=== PATIENT | male | born 1935 | race Two or more races ===

== ENCOUNTER 2017-04-15 09:12 | Outpatient (CLI) | payer MEDICARE, OTHER ==
[~2017-04-15 09:12] MED LIST: AVODART0.5 MG PO; CRESTOR10 M1 PO; DEXILANT60 MG PO; FLOMAX0.4 MG PO; GLUCOPHAGE500 MG PO; JANUVIA50 MG PO; SIMVASTATIN40 MG PO; VIT D3 PO; ZESTRIL10 MG PO
[2017-04-15 09:35] VITALS: BP 123/58
[2017-04-15] MEDS ORDERED: ASPIRIN EC81 MG ORAL (09:40)
--- NOTE | 2017-04-15 10:41 | GI Initial Consult Note ---
Figueroa,[place] Manpreet N.PCraig 04/15/17 1041: History of Present Illness General Date patient seen: Apr 15, 2017 Time patient seen: 10:36 Referring physician: RANJEET Reason for Consultation: vomiting Present Illness HPI 81 year old male patient referred by Dr. Williamson for c/o of random episodes of vomiting and heartburn. In addition the patient c/o of cough with sputum production, swelling of feet and weakness in the arm/leg. Denies any unintentional weight loss or changes in dietary habits. No signs of abuse or neglect. Patient is not fall risk. Unknown history of endoscopic / colonoscopies. Home Meds Reported Medications Aspirin Ec* (ASPIRIN EC*) 81 Mg Tablet., 81 MG ORAL DAILY, TAB 04/15/17 Dexlansoprazole (Dexilant) 60 Mg Cap., 60 MG PO PRN 05/28/12 Tamsulosin HCl (Flomax) 0.4 Mg Cap, 0.4 MG PO DAILY, #5 TAB 05/28/12 Simvastatin (ZOCOR) 40 Mg Tablet, 40 MG PO DAILY 05/28/12 Sitagliptin (Januvia) 50 Mg Tab, 50 MG PO DAILY 05/28/12 Dutasteride (AVODART) 0.5 Mg Capsule, 0.5 MG PO HS 05/28/12 Metformin Hcl* (GLUCOPHAGE*) 500 Mg Tablet, 500 MG PO BID, #20 TAB Take one tablet by mouth twice a day 05/28/12 Discontinued Reported Medications [Vit D3] No Conflict Check, 5000 PO DAILY 06/18/12 Rosuvastatin Calcium (Crestor) 10 Mg Tab, 10 MG PO DAILY 06/18/12 Lisinopril* (ZESTRIL*) 10 Mg Tablet, 10 MG PO DAILY, #10 TAB Take 1 tablet by mouth every day. 05/28/12 Med list reviewed/reconciled: Yes Allergies: Coded Allergies: No Known Allergies (Unverified , 05/27/12) Patient History History Provided By: Patient, Medical Record [facility] Narrative HTN - patient is not taking any BP meds at this time cholesterol BPH GERD DM Kidney Stone Past Surgical History: B inguinal hernia repair B Cataract Pertinent Family History: none Social History: Denies: smoking, alcohol use, drug use, other Review of Systems All Other Systems: negative except mentioned in HPI Physical Exam Vital Signs Date Time Temp Pulse Resp B/P (MAP) Pulse Ox O2 Delivery O2 Flow Rate FiO2 04/15/17 09:35 97.6 66 16 123/58 96 Sp02 EP Interpretation: reviewed, normal General Appearance: well appearing, no apparent distress, alert Head: normocephalic EENT: PERRL/EOMI, normal ENT inspection Neck: supple Respiratory: normal breath sounds, no respiratory distress Cardiovascular: normal rate Gastrointestinal: normal inspection, non tender, soft, normal bowel sounds, non -distended Rectal: deferred Genitourinary: deferred Musculoskeletal: normal inspection, back normal Neurologic: normal inspection, alert, oriented x3, responsive Psychiatric: normal inspection, judgement/insight normal, memory normal Skin: normal inspection, normal color, no rash, warm/dry, palpation normal, well hydrated Lymphatic: normal inspection, no adenopathy GI: Plan Problems: (1) Vomiting (2) GERD (gastroesophageal reflux disease) (3) Diabetes mellitus (4) BPH (benign prostatic hyperplasia) (5) HTN (hypertension) (6) Elevated cholesterol Plan rx ppi QOD dietary instructions given >> eat smaller portion, more frequent meals extensive review of imaging studies and medical reports from other facilities RTC prn Seen with Dr. Damian. Thank you for this patient referral. JONG DAMIAN 04/16/17 1013: History of Present Illness Present Illness Home Meds Reported Medications Aspirin Ec* (ASPIRIN EC*) 81 Mg Tablet., 81 MG ORAL DAILY, TAB 04/15/17 Dexlansoprazole (Dexilant) 60 Mg Cap., 60 MG PO PRN 05/28/12 Tamsulosin HCl (Flomax) 0.4 Mg Cap, 0.4 MG PO DAILY, #5 TAB 05/28/12 Simvastatin (ZOCOR) 40 Mg Tablet, 40 MG PO DAILY 05/28/12 Sitagliptin (Januvia) 50 Mg Tab, 50 MG PO DAILY 05/28/12 Dutasteride (AVODART) 0.5 Mg Capsule, 0.5 MG PO HS 05/28/12 Metformin Hcl* (GLUCOPHAGE*) 500 Mg Tablet, 500 MG PO BID, #20 TAB Take one tablet by mouth twice a day 05/28/12 Discontinued Reported Medications [Vit D3] No Conflict Check, 5000 PO DAILY 06/18/12 Rosuvastatin Calcium (Crestor) 10 Mg Tab, 10 MG PO DAILY 06/18/12 Lisinopril* (ZESTRIL*) 10 Mg Tablet, 10 MG PO DAILY, #10 TAB Take 1 tablet by mouth every day. 05/28/12 Allergies: Coded Allergies: No Known Allergies (Unverified , 05/27/12) GI: Plan Plan The patient was seen and examined at bedside and all new and available data was reviewed in the patients chart. I agree with the above findings, impression and plan. (Patient seen earlier today. Signature stamp does not reflect patient encounter time.). - MD [facility] Manpreet Holbrook Apr 15, 2017 10:41 JONG DAMIAN Apr 16, 2017 10:13
== END 2017-04-15 09:35 | disposition home or self-care (01) ==
LOC: PAN 09:12
DX: R11.10 Vomiting, unspecified (principal); K21.9 Gastro-esophageal reflux disease without esophagitis; E11.9 Type 2 diabetes mellitus without complications; N40.0 Benign prostatic hyperplasia without lower urinary tract symptoms; I10 Essential (primary) hypertension; E78.00 Pure hypercholesterolemia, unspecified; R05 Cough; Z79.82 Long term (current) use of aspirin; Z79.84 Long term (current) use of oral hypoglycemic drugs
CPT/HCPCS: 99201

== ENCOUNTER 2017-11-10 14:15 | Outpatient (CLI) | payer MEDICARE, OTHER ==
[~2017-11-10 14:15] MED LIST changes: +ASPIRIN EC81 MG ORAL
[2017-11-10 14:26] VITALS: BP 129/66
--- NOTE | 2017-11-10 15:17 | GI Progress Note ---
Assessment/Plan Problems: (1) Occult blood in stools ICD Codes: R19.5 - Other fecal abnormalities SNOMED: 40610699, 628955584 (2) GI bleed ICD Codes: K92.2 - Gastrointestinal hemorrhage, unspecified SNOMED: 22107870 Status: stable Status Narrative Seen with Dr. Moulton. Assessment/Plan EGD/colonoscopy scheduled 11/09/17. - CLD & (Nulytely/Suprep/Movi-Prep) prep instructions given and acknowledged by patient. - NPO @ [place] day prior procedure explained. Seen with Dr. Moulton. Thank you for this patient referral. The patient was seen and examined at bedside and all new and available data was reviewed in the patients chart. I agree with the above findings, impression and plan. (Patient seen earlier today. Signature stamp does not reflect patient encounter time.). - Bradley Moulton MD Subjective Subjective Bloody in stool, FOB positive Objective Last 24 Hour Vital Signs Date Time Temp Pulse Resp B/P (MAP) Pulse Ox O2 Delivery O2 Flow Rate FiO2 11/10/17 14:26 97.6 72 16 129/66 95 97.6 General Appearance: WD/WN, no apparent distress, alert Cardiovascular: normal rate Respiratory/Chest: normal breath sounds, no respiratory distress Abdominal Exam: normal bowel sounds, non tender, soft Extremities: normal range of motion, non-tender Cathie Figueroa FOAM DISPENSER Nov 10, 2017 15:17
== END 2017-11-10 14:47 | disposition home or self-care (01) ==
LOC: PAN 14:15
DX: K92.2 Gastrointestinal hemorrhage, unspecified (principal); R19.5 Other fecal abnormalities
CPT/HCPCS: 99201

== ENCOUNTER 2017-11-12 07:07 | Day surgery (SDC) | payer MEDICARE, OTHER ==
[2017-11-12] VITALS (9 sets, daily range): BP systolic 113–140; BP diastolic 58–67
[~2017-11-12] VITALS: Ht 165.1 cm; Wt 78.9 kg
--- NOTE | 2017-11-12 06:53 | Anethesia Preoperative Eval ---
Anesthesia Pre-op PMH/ROS General Date of Evaluation: Nov 12, 2017 Time of Evaluation: 06:50 Anesthesiologist: nicola ASA Score: ASA 3 Mallampati Score Class I : Soft palate, uvula, fauces, pillars visible Class II: Soft palate, uvula, fauces visible Class III: Soft palate, base of uvula visible Class IV: Only hard plate visible Mallampati Classification: Class II Surgeon: tamir Diagnosis: gi bleed Surgical Procedure: egd/colonoscopy Anesthesia History: none Social History: smoking - nonsmoker Family History: no anesthesia problems Allergies: Coded Allergies: No Known Allergies (Unverified , 05/27/12) Medications: see eMAR Past Medical History Cardiovascular: Reports: HTN, other - elevated cholesterol Gastrointestinal/Genitourinary: Reports: other - bph, kidney stones Endocrine: Reports: DM Musculoskeletal/Integumentary: Reports: OA Anesthesia Pre-op Phys. Exam Physician Exam Last Vital Signs Date Time Temp Pulse Resp B/P (MAP) Pulse Ox O2 Delivery O2 Flow Rate FiO2 11/12/17 07:45 97.2 58 20 140/63 97 Room Air 97.2 Constitutional: NAD Neurologic: CN 2-12 intact Cardiovascular: RRR Respiratory: CTA Gastrointestinal: S/NT/ND Airway Exam Mallampati Score: Class II MO: limited Neck: supple TMD: 2fb ROM: limited Teeth: intact Anesthesia Pre-op A/P Studies Pre-op Studies: EKG - sinus bradycardia, rbbb bifasicular block Risk Assessment & Plan Assessment: asa3 Plan: mac Status Change Before Surgery: No Pre-Antibiotics Drug: Linda Venegas MD Nov 12, 2017 06:53
[~2017-11-12 07:07] MED LIST changes: +Atropine Inj 1mg/10ml Syr IV PRN; +DiphenhydrAMINE 50mg/ml Inj IVP PRN; +Midazolam 2mg/2ml Inj IVP PRN; +fentaNYL 100 mcg/2 mL IV PRN
[2017-11-12] MEDS ORDERED: Glycopyrrolate 0.2mg/ml 1ml Vial ONE (08:30)
[2017-11-12] MEDS ORDERED: Lidocaine 1% MPF 10mg/ml 5ml ONE (08:30)
[2017-11-12] MEDS ORDERED: Propofol 200mg/20ml IV ONE (08:30)
--- NOTE | 2017-11-12 09:06 | Pre-Procedure Note/Attestation ---
Pre-Procedure Note/Attestation Complete Prior to Procedure Planned Procedure: not applicable Procedure Narrative: EGD and colonoscopy Indications for Procedure Pre-Operative Diagnosis: GIB Attestation I attest that I discussed the nature of the procedure; its benefits; risks and complications; and alternatives (and the risks and benefits of such alternatives ), prior to the procedure, with the patient (or the patient's legal hobbies and crafts sales representative). I attest that, if there was a reasonable possibility of needing a blood transfusion, the patient (or the patient's legal hobbies and crafts sales representative) was given the [facility] standardized written summary, pursuant to the Jacques Melony Blood Safety Act ([place] Health and Safety Code # 1645, as amended). I attest that I re-evaluated the patient just prior to the surgery and that there has been no change in the patient's H&P, except as documented below: Bradley Moulton MD Nov 12, 2017 09:06
--- NOTE | 2017-11-12 09:06 | Short Stay Surgery H&P ---
History of Present Illness History of Present Illness Chief Complaint see recent consult note HPI Chaz Rene is a 82 year old male who was admitted on for Gi Bleed Patient History Allergies: Coded Allergies: No Known Allergies (Unverified , 05/27/12) Medication History Scheduled Dexlansoprazole (Dexilant), 60 MG PO PRN, (Reported) Dutasteride (Avodart), 0.5 MG PO HS, (Reported) Metformin Hcl* (Glucophage*), 500 MG PO BID, (Reported) Simvastatin (Zocor), 40 MG PO DAILY, (Reported) Sitagliptin (Januvia), 50 MG PO DAILY, (Reported) Tamsulosin HCl (Flomax), 0.4 MG PO DAILY, (Reported) Discontinued Medications Aspirin Ec* (Aspirin Ec*), 81 MG ORAL DAILY, (Reported) Discontinued Reason: Pt stopped taking med Physical Exam Vital Signs Last Vital Signs Date Time Temp Pulse Resp B/P (MAP) Pulse Ox O2 Delivery O2 Flow Rate FiO2 11/12/17 07:45 97.2 58 20 140/63 97 Room Air 97.2 Plan Attestation Are the patient's medical conditions optimized for surgery? Bradley Moulton MD Nov 12, 2017 09:06
--- NOTE | 2017-11-12 09:29 | Endoscopy Procedure Note ---
Endoscopy Procedure Note General Indication for Procedure: stool ob positive Procedures Performed: EGD, colonoscopy Operative Findings/Diagnosis: HH, gastritis, esophagitis Specimen: yes Pt Tolerated Procedure Well: Yes Estimated Blood Loss: none Anesthesia Anesthesiologist: alize Anesthesia: MAC Inserted Devices Implant(s) used?: No Quality Quality of Bowel Preparation: Excellent Did scope reach the cecum?: Yes Was there any complications?: No GI Core Measures 50 yrs or older w/o bx or poly: Yes 10yrs. F/U not recommended: No If not recommended, why?: Above average risk 10 yrs. F/U needed: Yes 18 years or older w/prev. colo: Yes <3yrs. since last colonoscopy: Yes Med reason:<3 yrs.: recurrent GIB Bradley Moulton MD Nov 12, 2017 09:29
--- NOTE | 2017-11-12 09:44 | Immediate Post-Op Evaluation ---
Immediate Post-Op Evalulation Immediate Post-Op Evalulation Procedure: egd/colonoscopy/bx Date of Evaluation: Nov 12, 2017 Time of Evaluation: 09:42 IV Fluids: 250ml 0.9ns Blood Products: none Estimated Blood Loss: negligible Blood Pressure Systolic: 113 Blood Pressure Diastolic: 67 Pulse Rate: 57 Respiratory Rate: 18 O2 Sat by Pulse Oximetry: 99 Temperature (Fahrenheit): 97.4 Pain Score (1-10): 0 Nausea: No Vomiting: No Complications none Patient Status: awake, reacts, patent Hydration Status: adequate Drug: Linda Venegas MD Nov 12, 2017 09:44
--- NOTE | 2017-11-12 11:10 | 48 Hour Post Anesthesia Eval ---
Post Anesthesia Evaluation Procedure: egd/colonoscopy/bx Date of Evaluation: Nov 12, 2017 Time of Evaluation: 09:45 Blood Pressure Systolic: 120 0: 61 Pulse Rate: 54 Respiratory Rate: 18 Temperature (Fahrenheit): 97.4 O2 Sat by Pulse Oximetry: 99 Airway: patent Nausea: No Vomiting: No Pain Intensity: 0 Hydration Status: adequate Cardiopulmonary Status: stable Mental Status/LOC: patient returned to baseline Post-Anesthesia Complications: none Follow-up care needed: N/A Linda Jovel MD Nov 12, 2017 11:09
--- NOTE | 2017-11-12 14:56 | Cardiology Report ---
APPROVED REPORT EKG Measurement Heart [id number] [id number] Sinus bradycardia Right bundle branch block Left anterior fascicular block Bifascicular block Abnormal ECG
--- NOTE | 2017-11-12 16:16 | Procedure Note ---
DATE OF PROCEDURE: 11/12/2017 SURGEON: Bradley Moulton M.D. ANESTHESIOLOGIST: Dr. Marcelino. PROCEDURE: Upper endoscopy with biopsy and colonoscopy. ANESTHESIA: Per Dr. Marcelino. INSTRUMENT: Olympus adult flexible upper endoscope and colonoscope. INDICATION: Stool OB positive, abdominal pain. The procedure, risks, benefits, and possible consequences, including hemorrhage, aspiration, perforation and infection, and alternative treatments, were explained to the patient/legal guardian by Dr. Bradley Moulton and the patient/legal guardian understood and accepted these risks. DESCRIPTION OF PROCEDURE: After informed consent was obtained and the patient was adequately sedated, Olympus upper endoscope was advanced from the mouth to the second portion of the duodenum and retroflexion was performed in the stomach. The patient has evidence of 3-cm hiatal hernia with minimum distal esophagitis most probably from the hiatal hernia. No obvious esophageal mass. In the stomach, there was diffuse gastritis. Random biopsy from antrum and body was obtained to rule out H. pylori infection. At this time, the upper endoscope was retrieved. The patient was turned over for colonoscopy. First, rectal exam performed which was normal. Then, the scope was advanced from the rectum to the cecum documented by the appendiceal orifice, ileocecal valve, and right upper quadrant palpation. Quality of prep was very good. The patient had diverticulosis both in the right and left. No obvious mass, polyp, or any pathology was seen. Retroflexion of rectum showed evidence of internal hemorrhoids. SUMMARY OF FINDINGS: 1. A 3-cm hiatal hernia. 2. Minimum distal esophagitis. 3. Gastritis, status post biopsy. 4. Diverticulosis. 5. Internal hemorrhoids. RECOMMENDATIONS: 1. Follow up biopsy results and treat accordingly. 2. We are going to start the patient on omeprazole 40 mg p.o. daily. Bradley Moulton M.D. DR: Salvador JOB#: [id number] CC:
== END 2017-11-12 10:50 | disposition home or self-care (01) ==
LOC: GAS 07:07
DX: R10.9 Unspecified abdominal pain (principal); K44.9 Diaphragmatic hernia without obstruction or gangrene; K20.9 Esophagitis, unspecified; K57.90 Diverticulosis of intestine, part unspecified, without perforation or abscess without bleeding; K64.8 Other hemorrhoids; K29.50 Unspecified chronic gastritis without bleeding; I45.10 Unspecified right bundle-branch block; I45.2 Bifascicular block; Z79.84 Long term (current) use of oral hypoglycemic drugs; Z79.82 Long term (current) use of aspirin; I10 Essential (primary) hypertension; E78.00 Pure hypercholesterolemia, unspecified; E11.9 Type 2 diabetes mellitus without complications; Z87.442 Personal history of urinary calculi
CPT/HCPCS: 43239; 45378; 82962; 93005; J2704; 94003; 94150

== ENCOUNTER 2017-11-25 10:14 | Outpatient (CLI) | payer MEDICARE, OTHER ==
[~2017-11-25 10:14] MED LIST changes: -Atropine Inj 1mg/10ml Syr IV PRN; -DiphenhydrAMINE 50mg/ml Inj IVP PRN; -Midazolam 2mg/2ml Inj IVP PRN; -fentaNYL 100 mcg/2 mL IV PRN
[2017-11-25 10:55] VITALS: BP 124/61
--- NOTE | 2017-11-25 11:02 | GI Progress Note ---
Assessment/Plan Problems: (1) Occult blood in stools ICD Codes: R19.5 - Other fecal abnormalities SNOMED: 39702762, 173157215 (2) Vomiting ICD Codes: R11.10 - Vomiting, unspecified SNOMED: 102055125 (3) GERD (gastroesophageal reflux disease) ICD Codes: K21.9 - Gastro-esophageal reflux disease without esophagitis SNOMED: 204117428 (4) Diabetes mellitus ICD Codes: E11.9 - Type 2 diabetes mellitus without complications SNOMED: 20362505 Status: stable Status Narrative Seen with Dr. Moulton. Assessment/Plan SUMMARY OF FINDINGS: 1. A 3-cm hiatal hernia. 2. Minimum distal esophagitis. 3. Gastritis, status post biopsy. 4. Diverticulosis. 5. Internal hemorrhoids. RECOMMENDATIONS: 1. Follow up biopsy results and treat accordingly. >> negative cont dexilant 60mg RTC x 3 months repeat colon x 5 years The patient was seen and examined at bedside and all new and available data was reviewed in the patients chart. I agree with the above findings, impression and plan. (Patient seen earlier today. Signature stamp does not reflect patient encounter time.). - Bradley Moulton MD Subjective Subjective GERD, takes dexilant 60mg denies vomiting Objective Last 24 Hour Vital Signs Date Time Temp Pulse Resp B/P (MAP) Pulse Ox O2 Delivery O2 Flow Rate FiO2 11/25/17 10:55 97.4 72 16 124/61 96 97.4 General Appearance: WD/WN, no apparent distress, alert Cardiovascular: normal rate Respiratory/Chest: normal breath sounds, no respiratory distress Abdominal Exam: normal bowel sounds, non tender, soft Extremities: normal range of motion, non-tender Cathie Figueroa CEMENT FINISHER HELPER Nov 25, 2017 11:02
== END 2017-11-25 12:14 | disposition home or self-care (01) ==
LOC: PAN 10:14
DX: R19.5 Other fecal abnormalities (principal); R11.10 Vomiting, unspecified; E11.9 Type 2 diabetes mellitus without complications; K44.9 Diaphragmatic hernia without obstruction or gangrene; K29.70 Gastritis, unspecified, without bleeding; K57.90 Diverticulosis of intestine, part unspecified, without perforation or abscess without bleeding; K64.8 Other hemorrhoids; K21.0 Gastro-esophageal reflux disease with esophagitis
CPT/HCPCS: 99212

== ENCOUNTER 2019-11-02 09:44 | Outpatient (CLI) | payer MEDICARE, OTHER ==
--- NOTE | 2019-11-02 23:00 | Consultation ---
DATE OF CONSULTATION: 11/02/2019 CONSULTING PHYSICIAN: Bradley Moulton MD. CHIEF COMPLAINT: Abdominal pain. HISTORY OF PRESENT ILLNESS: This is a very pleasant 84-year-old male, known to me from prior admissions. Last endoscopy and colonoscopy was 2 years ago. Endoscopy showed evidence of hiatal hernia, esophagitis, gastritis. Patient is currently on Dexilant 60 mg p.o. daily for that. Colonoscopy showed evidence of diverticulosis and hemorrhoids without any obvious polyps or bleeding. Patient's brother recently was diagnosed with gastric cancer who was actually from it, so he is a little bit concerned. PHYSICAL EXAMINATION: VITAL SIGNS: Temperature is 97.6, blood pressure is 141/75, pulse is 81, respirations 20. HEENT: Normocephalic and atraumatic. Sclerae anicteric. NECK: Supple. No evidence of obvious lymphadenopathy. CARDIOVASCULAR: Regular rate and rhythm. Plus S1 and S2. LUNGS: Clear to auscultation bilaterally. ABDOMEN: Positive bowel sounds. Soft and nontender. There is a scar in the epigastric area from prior hernia surgery. No rebound. No guarding. No peritoneal sign. EXTREMITIES: No cyanosis. No clubbing. No edema. ASSESSMENT AND PLAN: This is an 84-year-old male with significant hiatal hernia, esophagitis, currently on chronic PPI. Plan, patient really wants to have an endoscopy given his brother was diagnosed with gastric cancer. He was at age and he had a hiatal hernia and he has chronic GERD despite of Dexilant, so we are going to go ahead and schedule him for endoscopy. Meanwhile, patient given he is on chronic PPI, magnesium and B12 have been checked by PMD. Magnesium was low, patient is taking magnesium supplement. B12 level was normal. Patient was told to get MiraLAX p.r.n. for constipation. Patient is to be scheduled for endoscopy when he is ready and he wants to do it after weekend. So, we are going to do it at that time. Bradley Moulton M.D. DR: VJ JOB#: [id number] CC:
== END 2019-11-02 11:44 | disposition home or self-care (01) ==
LOC: PAN 09:44
DX: R10.9 Unspecified abdominal pain (principal); Z79.899 Other long term (current) drug therapy; Z80.0 Family history of malignant neoplasm of digestive organs; K44.9 Diaphragmatic hernia without obstruction or gangrene; K21.0 Gastro-esophageal reflux disease with esophagitis
CPT/HCPCS: 99212

== ENCOUNTER 2020-03-30 14:02 | Outpatient (CLI) | payer MEDICARE, OTHER ==
--- NOTE | 2020-03-31 09:54 | General Progress Note ---
Subjective ROS Limited/Unobtainable: Yes Allergies: Coded Allergies: No Known Allergies (Unverified , 05/27/12) Objective General Appearance: alert EENT: normal ENT inspection Neck: supple Cardiovascular: normal rate Respiratory/Chest: lungs clear Abdomen: normal bowel sounds, non tender, soft Extremities: non-tender Assessment/Plan Assessment/Plan: 10/2017 SUMMARY OF FINDINGS: 1. A 3-cm hiatal hernia. 2. Minimum distal esophagitis. 3. Gastritis, status post biopsy. 4. Diverticulosis. 5. Internal hemorrhoids. refuses EGD ppi add linzess add baclofen Bradley Moulton MD Mar 31, 2020 09:54
== END 2020-03-30 16:02 | disposition home or self-care (01) ==
LOC: PAN 14:02
DX: K44.9 Diaphragmatic hernia without obstruction or gangrene (principal); K20.90 Esophagitis, unspecified without bleeding; K29.70 Gastritis, unspecified, without bleeding; K57.90 Diverticulosis of intestine, part unspecified, without perforation or abscess without bleeding; K64.8 Other hemorrhoids
CPT/HCPCS: 99212